=== PATIENT | female | born 1985 | race Caucasian/White ===

== ENCOUNTER 2024-12-07 11:26 | Outpatient (REF) | payer OTHER, SELFPAY ==
--- NOTE | ~2024-12-07 | US_ITS ---
EXAMINATION: MM DIAGNOSTIC DIGITAL BREAST TOMOSYNTHESIS, BILATERAL Limited Bilateral ultrasound. CLINICAL INFORMATION: Left breast palpable lump lower central breast. COMPARISON: Mammography: Baseline. TECHNIQUE: Digital breast mammography with tomosynthesis is performed in both the craniocaudal and mediolateral oblique views along with computer-aided detection (CAD). FINDINGS: The breasts are heterogeneously dense, which may obscure small masses (ACR BI-RADS breast composition Category c). Left: There are grouped coarse heterogeneous calcifications in a linear distribution measuring up to 10 cm anterior to posterior in the central inner breast extending anteriorly from the nipple towards the posterior breast. There is a focal asymmetry in the central inner breast anterior depth and a asymmetry in the medial breast middle depth on CC view. Ultrasound: Targeted color Doppler ultrasound scanning in the entire medial left breast from 6-12 o'clock demonstrates an solid irregular hypoechoic superficial mass at 8:00 4 cm from the nipple measuring 7 x 9 x 6 mm which correlates with the patient's palpable lump. Otherwise there is normal fibroglandular breast tissue scanning from 6-12 o'clock in the medial left breast. Right: There are two asymmetries medial breast middle and posterior depth on CC view. No suspicious calcifications or other abnormal findings. Ultrasound: Targeted color Doppler ultrasound scanning in the medial right breast demonstrates a simple cyst at 12:00 2 cm from the nipple measuring 13 x 17 x 6 mm. Targeted color Doppler ultrasound demonstrates a hypoechoic oval circumscribed solid mass at 3:00 5 cm from the nipple measuring 13 x 4 x 7 mm. This likely correlates with one of the medial breast asymmetries on mammography. Results are discussed with the patient at time of visit. US/US breast BI limited mamm only IMPRESSION: Left: 1. Solid irregular mass on ultrasound at 8:00 4 cm from the nipple correlating with the patient's palpable lump. Recommend histology with ultrasound-guided core needle biopsy at this time. The findings and recommendations were discussed with the patient the procedure will be scheduled. 2. Grouped coarse heterogeneous calcifications in a linear distribution spanning from the nipple posteriorly up to 10 cm. Recommend stereotactic core needle biopsy at this time for histologic confirmation. 3. Focal asymmetry retroareolar region central inner breast anterior depth and medial breast middle depth on CC view recommend clinical correlation with ultrasound-guided core needle biopsy above and management will be pending pathology of the above 2 biopsies. Breast MRI could be considered after pathology for further evaluation. Right: 1. 2 asymmetries in the medial right breast middle and posterior depth on CC view without definite sonographic correlates. Management will be pending biopsy of the 2 areas in the left breast to include six-month follow-up versus biopsy. 2. Hypoechoic oval circumscribed solid mass in the right breast at 3:00 5 cm from nipple which is a questionable correlate for one the asymmetries in the medial right breast middle and posterior depth on mammography. Management will be pending biopsy of the 2 left breast areas to include six-month follow-up versus biopsy. 3.. Simple cyst on ultrasound at 12:00 2 cm from the nipple. Benign. Breast MRI could be considered after pathology for further evaluation. ASSESSMENT: BI-RADS BI-RADS 4 - Suspicious finding RECOMMENDATION: Biopsy recommended Electronically signed by: Riri Valverde DO 12/07/2024 02:28 PM EDT
--- OUTSIDE RECORDS SUMMARY | 2024-12-07 13:11 | XMS_ITS | Encounter Summary ---
Author Organization [facility] Address [address] [place] [address] Phone Care Team Providers Care Home Care Giver Name Role Phone Pcp, Not Required Primary Care Provider Unavaila ble Encounter Details Date Type Department Care Team (Late st Contact Info) Description 11/21/2024 Ancillary Orders [facility] [place] [address] [address] Patti Morales NP [address] [facility] [place] [address] [email or web address] Unspecified lump in left breast, subareolar (Primary Dx) Social History Tobacco Use Types Packs/Day Years Used Date Smoking Tobacco: Never Smokeless Tobacco: Never Alcohol Use Standard Drinks/Week Comments Never 0 (1 standard drink = 0.6 oz pur e alcohol) Education Answer Date Recorded Are you interested in more education? Not on kymberly e 07/31/2022 Are you concerned about learning? Not on file 07/31/2022 No 07/31/2022 No 07/31/2022 Digital Access Answer Date Recorded No 09/01/2022 No 09/01/2022 Reliable internet access at home? Not on file 09/01/2022 Device with a working camera? Not on file Comments No Sex and Gender Information Value Date Recorded Sex Assigned at Not on file Legal Sex Female 12:04 PM EDT Gender Identity Not on file Sexual Orientation Not on file documented as of this encounter Plan of Treatment Upcoming Encounters Date Type Department Care Team (Late st Contact Info) Description 01/02/2025 10:40 AM EDT Procedure visit [facility] [address] [place] [address] [place] [address] Iris Sherman MD [address] [place] [address], [address] [place] [address] 02/06/2025 8:30 AM EST Office Visit [facility] [address] [facility] 1st [place] [address] Cassy Raya MD [address] [facility] [place] [address] [email or web address] Scheduled Orders Name Type Priority Associated Diagnoses Orde r Schedule Mammogram Diagnostic (Bilateral) Imaging Routine Unspecified lump in left breast, subareolar 1 Occurrences starting 11/21/2024 until 11/21/2026 documented as of this encounter Visit Diagnoses Diagnosis Unspecified lump in left breast, subareolar- Primary documented in this encounter Care Teams Home Care Giver Relationship Specialty Start Date End Date Pcp, Not Required [address] [place] [id number] PCP - General 04/28/18 documented as of this encounter Additional Source Comments The information contained in this document represents components of the legal health record. It is not the complete legal health record.[facility]
--- OUTSIDE RECORDS SUMMARY | 2024-12-07 13:11 | XMS_ITS | Encounter Summary ---
Author Organization [facility] Address [address] [facility] [address] [place] [address] Phone Care Team Providers Care Burn Center Nurse Name Role Phone Pcp, Not Required Primary Care Provider Unavaila ble Encounter Details Date Type Department Care Team (Late st Contact Info) Description 11/21/[address] [facility] [place] Breast Imaging, [address] [address] Patti Morales NP 31 [facility] [place] [address] [email or web address] Unspecified lump in left breast, subareolar [...] Procedure visit [facility] [address] [place] [address] [place] [address] Iris Sherman MD [address] [place] [address], [address] [place] [address] 02/06/2025 8:30 AM EST Office Visit [facility] [address] [facility] 1st [place] [address] Cassy Raya MD [address] [facility] [place] [address] [email or web address] Scheduled Orders Name Type Priority Associated Diagnoses Orde r Schedule US Breast (Left) Imaging Routine Unspecified lump in left breast, subareolar 1 Occurrences starting 11/21/2024 until 11/21/2026 documented as of this encounter Visit Diagnoses Diagnosis Unspecified lump in left breast, subareolar- Primary documented in this encounter Care Teams Burn Center Nurse Relationship Specialty Start Date End Date Pcp, Not Required [address] [place] [address] PCP - General 04/28/18 documented as of this encounter Additional Source Comments The information contained in this document represents components of the legal health record. It is not the complete legal health record.[facility]
--- OUTSIDE RECORDS SUMMARY | 2024-12-07 13:11 | XMS_ITS | Clinical Summary ---
Author Organization [facility] Address [address] [place] [phone] Phone Care Team Providers Care Corporate Statistical Financial Analyst Name Role Phone Pcp, Not Required Primary Care Provider Unavaila ble Allergies Active Allergy Reactions Criticality Noted Date Comments Cefaclor 08/14/2013 Penicillins 06/09/2018 Medications fluticasone propionate 110 mcg/actuation inhaler Inhale into the lungs 2 (two) times a day. Active dexmethylphenida te (FOCALIN XR) 10 MG 24 hr capsule Take 10 mg by mouth daily. 02/11/2024 Active Active Problems No known active problems Encounters Date Type Department Care Team Description 11/21/2024 Ancillary Orders [facility] [place] Breast Imaging[address] [address] Patti Morales NP Unspecified lump in left breast, subareolar (Primary Dx) 11/21/2024 Ancillary Orders [facility] [place] Breast Imaging, [address] [address] Patti Morales NP Unspecified lump in left breast, subareolar (Primary Dx) from Last 3 Months Family History Medical History Relation Comments Diabetes Mother Stroke Mother Uterine cancer Mother Relation Status Comments Brother Alive Father Alive Maternal Grandfather Maternal Grandmother Mother Paternal Grandfather Paternal Grandmother Social History Tobacco Use Types Packs/Day Years Used Date Smoking Tobacco: Never Smokeless Tobacco: Never Tobacco Cessation:Counseling Given: Not Answered Alcohol Use Standard Drinks/Week Comments Never 0 [...] on file Sexual Orientation Not on file Last Filed Vital Signs Vital Sign Reading Time Taken Comments Blood Pressure 123/84 08/14/2024 1:13 PM EDT Pulse 102 08/14/2024 1:13 PM EDT Temperature - - Respiratory Rate - - Oxygen Saturation 100% 08/14/2024 1:13 PM EDT Inhaled Oxygen Concentration - - Weight 57.2 kg (126 lb) 03/20/2024 1:05 PM EST Height 161.3 cm (5' 3.5 ) 03/20/2024 1:05 PM EST Body Mass Index 21.97 03/20/2024 1:05 PM EST Plan of Treatment Upcoming Encounters Date Type Department Care Team (Late st Contact Info) Description 01/02/2025 10:40 AM EDT Procedure visit [facility] [address] [place] [address] [place] [address] Iris Sherman MD [address] [place] [address], [address] [place] [address] 02/06/2025 8:30 AM EST Office Visit [facility] [address] [facility] 1st [place] [address] Cassy Raya MD [address] [facility] [place] [address] [email or web address] Health Maintenance Due Date Last Done Comments DEPRESSION SCREENING 1997 HEPATITIS C SCREENING 2003 HIV ONE-TIME SCREENING (18-65 YEARS) 2003 INFLUENZA VACCINE (#1) 2024 , 01/10/2023, 01/26/2022, Additional history exists PAP SMEAR 04/16/2026 04/16/2023 Adult Td,Tdap Booster 03/23/2033 03/23/2023, 012 COVID-19 VACCINE Completed 01/01/2024, 11/2022, 01/26/2022, Additional history exists SMOKING STATUS SCREENING (Once After 26 Yrs) Completed 08/14/2024 HEPATITIS A VACCINES Aged Out No long er eligible based on patient's age to complete this topic HIB VACCINES Aged Out No longer eligi ble based on patient's age to complete this topic MENINGOCOCCAL VACCINES (ACWY) Aged Out No longer eligible based on patient's age to complete this topic MENINGOCOCCAL VACCINES (B) Aged Out N o longer eligible based on patient's age to complete this topic PNEUMOCOCCAL VACCINES (0-49 years) Aged Out No longer eligible based on patient's age to complete this topic Medical Devices Not on file Procedures Procedure Name Priority Date/Time Associated Diagnosis Comments PAP TEST Routine 04/16/2023 12:00 AM EST from Last 3 Months or Most Recently Relevant to Health Maintenance Results * Pap Test (04/16/2023 12:00 AM EST) 04/16/2023 04/19/2023 10: 07 AM EST Narrative SEE NARRATIVE - 04/21/2023 2:49 PM EST [address] [address] Coal Dumping Equipment Operator: Maranda Alcaraz MD WEATHER TEACHER Cytology Report FINAL DIAGNOSIS A. PAP SMEAR (SUREPATH) CE: SPECIMEN ADEQUACY: Satisfactory for evaluation; transformation zone present. INTERPRETATION: NEGATIVE FOR INTRAEPITHELIAL LESION OR MALIGNANCY. Electronically Signed Out By: JORGE Canela(ASCP) The Pap test is a screening test primarily for squamous cancers and precursors and has associated false-negative and false-positive results. New technologies such as liquid-based preparations may decrease but will not eliminate all false-negative results. Regular sampling and follow-up of unexplained clinical signs and symptoms are recommended to minimize false negative results. PROCEDURES/ADDENDA HPV Testing (Requested) Ordered Date: 04/19/2023 A. PAP SMEAR (SUREPATH) CE: Human Papilloma Virus Test NEGATIVE for high-risk Human Papilloma Virus types 16, 18, 45 and the Other high risk probe set (Includes 31, 33, 35, 39, 51, 52, 56, 58, 59, 66, 68) Note: Testing performed by [employer] HR-HPV analysis. Clinical correlation is advised. This HPV test was performed at [facility], [address] [place] [address]. This test has been FDA approved for SurePath cervical cytology specimens. The accuracy and precision of this test for all other specimen sources has been verified in the Cytopathology Laboratory of the [facility] and has not been cleared or approved by the U.S. Food and Drug Administration. Clinical correlation is advised. CLINICAL HISTORY Date of Last Menstrual Period: 04-14-2023 Other Clinical Conditions: Screening Pap SPECIMEN SOURCE A: PAP SMEAR (SUREPATH) CE Patient Name: SENDY BELTRAN : 1985 (Age: 38) Sex: F Institution: [facility] Location: [facility] Date of Collection: 04/16/2023 Date of Reported: 04/21/2023 14:49 Results to: Leana Chandler MD us Leana Chandler MD CYTOLOGY ORDERABLES Final Res ult SEE NARRATIVE from Last 3 Months or Most Recently Relevant to Health Maintenance Insurance [employer] [facility] COMM[facility] CHO[facility] COMMUNITY CHOICE [facility] CHOICE Care Teams Corporate Statistical Financial Analyst Relationship Specialty Start Date End Date Pcp, Not Required [address] [place] [address] PCP - General 04/28/18 Additional Source Comments The information contained in this document represents components of the legal health record. It is not the complete legal health record.[facility]
== END 2024-12-07 11:27 | disposition home or self-care (01) ==
LOC: HO.MAMMO 11:26
PROVIDERS: PCP Nurse Practitioner Adult Health; Visit Provider Nurse Practitioner Adult Health
DX: N64.89 Other specified disorders of breast (principal); N63.42 Unspecified lump in left breast, subareolar
CPT/HCPCS: 76642; 77062; 77066

== ENCOUNTER → 2024-12-07 11:30 | Outpatient (BNV) | payer OTHER, SELFPAY | PROVIDERS: PCP Nurse Practitioner Adult Health; Visit Provider Internal Medicine | DX: N63.22 Unspecified lump in the left breast, upper inner quadrant (principal); N63.13 Unspecified lump in the right breast, lower outer quadrant | CPT/HCPCS: 76642; 77062; 77066 ==

== ENCOUNTER → 2024-12-21 09:00 | Outpatient (BNV) | payer OTHER, SELFPAY | PROVIDERS: PCP Nurse Practitioner Adult Health; Visit Provider Internal Medicine | DX: R92.1 Mammographic calcification found on diagnostic imaging of breast (principal); N63.25 Unspecified lump in the left breast, overlapping quadrants | CPT/HCPCS: 19081; 19083; 77065 ==

== ENCOUNTER 2024-12-21 09:05 | Outpatient (REF) | payer OTHER, SELFPAY ==
--- NOTE | ~2024-12-21 | MM_ITS ---
EXAMINATION: STEREOTACTICALLY-GUIDED LEFT BREAST BIOPSY CLINICAL INFORMATION: Linear pleomorphic calcifications in the central inner left breast here for stereotactic core needle biopsy. Patient had a solid irregular mass in the left breast correlating with the palpable lump for which ultrasound-guided core needle biopsy was performed same day. COMPARISON: Priors on PACS. INFORMED CONSENT: After the details of the procedure, as well as the risks (including, but not limited to, bleeding, hematoma formation, and infection), benefits and alternatives (including doing nothing, short-interval follow up, and surgery) to the procedure were explained to the patient in detail and all of her questions were answered, informed written consent was obtained. TECHNIQUE/FINDINGS: A timeout was performed. The lesion intended for biopsy was identified stereotactically and targeted. The skin of the left breast was then cleansed with sterile solution. Using stereotactic guidance, aseptic technique, and 1% lidocaine with and without epinephrine for local anesthesia, a total of 12 cores were obtained through the targeted area with a 9-gauge vacuum-assisted Eviva core biopsy device from a medial approach. Specimen radiography reveals the targeted calcifications in the sampled tissue. At the completion of tissue sampling, a single top hat-shaped metallic clip was deposited at the biopsy site. Adequate sampling was achieved. The postprocedure 2-view direct digital mammogram reveals satisfactory positioning of the biopsy clips. The patient tolerated the procedure well and, after assuring adequate hemostasis, was discharged in good condition after reviewing postbiopsy breast care instructions. Final pathology results are pending. MM/MM stereotactic biopsy LT IMPRESSION: 1. Uncomplicated stereotactically-guided core biopsy of the left. The 2-view direct digital postprocedure mammogram reveals satisfactory positioning of the biopsy clips. 2. Final pathology results are pending. A separate report with final recommendations will be issued once these results are made available. Electronically signed by: Riri Valverde DO 12/21/2024 02:34 PM EDT
--- NOTE | ~2024-12-21 | US_ITS ---
PROCEDURE: ULTRASOUND-GUIDED LEFT BREAST BIOPSY CLINICAL INFORMATION: Palpable left breast lump correlating with a solid irregular mass on ultrasound at 8:00 4 cm from the nipple here for ultrasound-guided core needle biopsy and stereotactic core needle biopsy of calcifications in the left breast. COMPARISON: Priors on PACS December 07, 2024. TECHNIQUE: The details of the procedure, as well as the risks, benefits, and alternatives to the procedure were explained to the patient in detail and all of her questions were answered, after which, written informed consent was obtained. PROCEDURE: Prior to the procedure, sonography revealed solid irregular mass at 8:00 4 cm from the nipple in the left breast correlating with the patient's palpable lump. A time-out was performed, the lesion intended for biopsy was targeted and the skin of the left breast was then prepped and draped in the usual sterile fashion. Using sonographic guidance, sterile technique, and 1% lidocaine without epinephrine for local anesthesia, a total of 6 cores were obtained through the targeted area with a 14-gauge biopsy device. At the completion of tissue sampling, a single butterfly metallic clip was deposited at the biopsy site. An appropriate sample was obtained. The postprocedure 2-view direct digital mammogram reveals satisfactory positioning of the biopsy clips. The patient tolerated the procedure well and, after assuring adequate hemostasis, was discharged in good condition after reviewing postbiopsy breast care instructions. Final pathology results are pending. US/US breast ndl core biopsy LT IMPRESSION: 1. Uncomplicated sonographically-guided core biopsy of the left breast. The 2-view direct digital postprocedure mammogram reveals satisfactory positioning of the biopsy clips. Patient also had a left breast stereotactic biopsy same day dictated separately. 2. Final pathology results are pending. A separate report with final recommendations will be issued once these results are made available. Electronically signed by: Riri Valverde DO 12/21/2024 02:34 PM EDT
[2024-12-21] MEDS: Lidocaine HCl 1 % 20 ML VIAL 18 ML SUBCUT (10:04)
--- OUTSIDE RECORDS SUMMARY | 2024-12-21 10:32 | XMS_ITS | Clinical Summary ---
Author Organization [facility] Address [address] [place] [address] Phone Care Team Providers Care Store Grocery Merchandiser Name Role Phone Pcp, Not Required Primary [...] Encounters Date Type Department Care Team Description 12/15/2024 Transcribe Orders [facility], [facility]- [address] [address] Patti Morales NP Other abnormal and inconclusive findings on diagnostic imaging of breast (Primary Dx) 12/14/2024 Transcribe Orders Virtual Department [address] [place] [address] Patti Morales NP Other abnormal and inconclusive findings on diagnostic imaging of breast (Primary Dx) 12/12/2024 Ancillary Orders [facility],Outside Imaging [address] [place] [address] Natalee, MD Natalee 12/12/2024 Ancillary Orders [facility],Outside Imaging [address] [place] [address] Unknown, MD Natalee 12/07/2024 12:05 AM EDT - 12/07/2024 11:59 PM EDT Hospital Encounter [facility],Outside Imaging [address] [place] [address] Unknown, Unknown, MD Discharge Disposition: Home or Self Care 12/07/2024 - 12/07/2024 12:04 AM EDT Hospital Encounter [facility],Outside Imaging [address] [place] [address] Unknown, Unknown, MD Discharge Disposition: Home or Self Care 11/21/2024 Ancillary Orders [facility] [place] Breast [place], [place] [address] [place] [address] Patti Morales NP Unspecified lump in left breast, subareolar (Primary Dx) 11/21/2024 Ancillary Orders [facility] [place] Breast [place], [address] [place] [address] Patti Morales NP Unspecified lump in left [...] Procedure visit [facility] [address] [place] [address] [place] [address] Iris Sherman MD [address] [place] [address], [address] [place] [address] 02/06/2025 8:30 AM EST Office Visit [facility] [address] [place] [address] Cassy Raya MD [address] [place] [address] [email or web address] Health Maintenance Due Date Last Done [...] Procedure Name Priority Date/Time Associated Diagnosis Comments BI MAMMOGRAM OUTSIDE (NO INTERPRETATION) Routine 12/07/2024 12:05 AM EDT BI US BREAST OUTSIDE (NO INTERPRETATION) Routine 12/07/2024 12:00 AM EDT PAP TEST Routine 04/16/2023 12:00 AM EST from Last 3 Months or Most Recently Relevant to Health Maintenance Results * Mammogram Outside (No Interpretation) (12/07/2024 12:05 AM EDT) Narrative Robyn Burnett - 12/12/2024 1:39 PM EDT This study is for PACS storage only and not for interpretation. Procedure Note Robyn Burnett - 12/12/2024 This study is for PACS storage only and not for interpretation. us Unknown Unknown MD IMG OUTSIDE IMAGING W/OUT INT ERPRETATION Final Result * US Breast Outside (No Interpretation) (12/07/2024 12:00 AM EDT) Narrative SYSTEMGENERATED, DOCUMENTATION - 12/12/2024 1:39 PM EDT This study is for PACS storage only and not for interpretation. us Unknown Unknown MD IMG OUTSIDE IMAGING W/OUT INT ERPRETATION Final Result * Pap Test (04/16/2023 12:00 AM EST) 04/16/2023 04/19/2023 10: 07 AM EST Narrative SEE NARRATIVE - 04/21/2023 2:49 PM EST [address] [address] Sole Trimmer: Maranda Alcaraz MD ENVELOPE CUTTER Cytology Report FINAL DIAGNOSIS A. PAP SMEAR [...] 59, 66, 68) Note: Testing performed by [employer] HR-HPV analysis. Clinical correlation is advised. This HPV test was performed at [facility], [address] [place] [address]. This test has been FDA approved for SurePath cervical cytology specimens. The accuracy and precision of this test for all other specimen sources has been verified in the Cytopathology Laboratory of the [facility] and has not been cleared or approved by the U.S. Food and Drug Administration. Clinical correlation is advised. CLINICAL HISTORY Date of Last Menstrual Period: 04-14-2023 Other Clinical Conditions: Screening Pap SPECIMEN SOURCE A: PAP SMEAR (SUREPATH) CE Patient Name: ARPAN BELTRAN : 1985 (Age: 38) Sex: F Institution: [facility] Location: [facility] Date of Collection: 04/16/2023 Date of Reported: 04/21/2023 14:49 Results to: Leana Chandler MD us Leana Chandler MD CYTOLOGY ORDERABLES Final Res ult SEE NARRATIVE from Last 3 Months or Most Recently Relevant to Health Maintenance Insurance [place] [address] COMMUNITY CHOICE [facility] CHOICE [facility] CHOICE [facility] CHO[facility] CHOICE [facility] CHOICE Care Teams Store Grocery Merchandiser Relationship Specialty Start Date End Date Pcp, Not Required [address] [place] [address] PCP - General 04/28/18 Additional Source Comments The information contained in this document represents components of the legal health record. It is not the complete legal health record.[facility]
--- OUTSIDE RECORDS SUMMARY | 2024-12-21 10:32 | XMS_ITS | Encounter Summary ---
Author Organization [facility] Address [address] [facility] [address] [place] [address] Phone Care Team Providers Care Office Machine Punch Operator Name Role Phone Pcp, Not Required Primary Care Provider Unavaila ble Encounter Details Date Type Department Care Team (Late st Contact Info) Description 11/21/2024 Ancillary Orders [facility] [place] Breast Imaging, [address] [address] Patti Morales NP 31 [facility] [place] [address] [email or web address] Unspecified lump in left breast, subareolar [...] Procedure visit [facility] [address] [place] [address] [place] [address] Iris Sherman MD [address] [place] [address], [address] [place] [address] 02/06/2025 8:30 AM EST Office Visit [facility] [address] [facility] 1st [place] [address] Cassy Raya MD [address] [facility] [place] [address] [email or web address] Scheduled Orders Name Type Priority Associated Diagnoses Orde r Schedule Mammogram Diagnostic (Bilateral) Imaging Routine Unspecified lump in left breast, subareolar 1 Occurrences starting 11/21/2024 until 11/21/2026 documented as of this encounter Visit Diagnoses Diagnosis Unspecified lump in left breast, subareolar- Primary documented in this encounter Care Teams Office Machine Punch Operator Relationship Specialty Start Date End Date Pcp, Not Required [address] [place] [address] PCP - General 04/28/18 documented as of this encounter Additional Source Comments The information contained in this document represents components of the legal health record. It is not the complete legal health record.[facility]
--- OUTSIDE RECORDS SUMMARY | 2024-12-21 10:32 | XMS_ITS | Encounter Summary ---
Author Organization [facility] Address [address] [facility] [address] [place] [address] Phone Care Team Providers Care Clarification Operator Name Role Phone Pcp, Not Required Primary Care Provider Unavaila ble Encounter Details Date Type Department Care Team (Late st Contact Info) Description 11/21/2024 Ancillary Orders [facility] [place] Breast Imaging, [address] [address] Patti Morales NP 31 [facility] [place] [address] [email or web address] Unspecified lump in left breast, subareolar [...] Procedure visit [facility] [address] [place] [address] [place] [address] Iris Sherman MD [address] [place] [address], [address] [place] [address] 02/06/2025 8:30 AM EST Office Visit [facility] [address] [facility] 1st [place] [address] Cassy Raya MD [address] [facility] [place] [address] [email or web address] Scheduled Orders Name Type Priority Associated Diagnoses Orde r Schedule US Breast (Left) Imaging Routine Unspecified lump in left breast, subareolar 1 Occurrences starting 11/21/2024 until 11/21/2026 documented as of this encounter Visit Diagnoses Diagnosis Unspecified lump in left breast, subareolar- Primary documented in this encounter Care Teams Clarification Operator Relationship Specialty Start Date End Date Pcp, Not Required [address] [place] [address] PCP - General 04/28/18 documented as of this encounter Additional Source Comments The information contained in this document represents components of the legal health record. It is not the complete legal health record.[facility]
[2024-12-21] MEDS: Lidocaine HCl 1 % 20 ML VIAL 3 ML SUBCUT (11:12)
[2024-12-21] MEDS: Lidocaine HCl 1%/Epi 1:100,000 10 ML VIAL 17 ML SUBCUT (11:14)
== END 2024-12-21 09:06 | disposition home or self-care (01) ==
LOC: HO.MAMMO 09:05
PROVIDERS: PCP Nurse Practitioner Adult Health; Visit Provider Nurse Practitioner Adult Health
DX: N63.42 Unspecified lump in left breast, subareolar (principal); R92.1 Mammographic calcification found on diagnostic imaging of breast; D05.12 Intraductal carcinoma in situ of left breast
CPT/HCPCS: 19081; 19083; 88305; 88342; A4648; J2003; J2004

== ENCOUNTER 2024-12-27 15:15 | Outpatient (REF) | payer OTHER, SELFPAY ==
--- NOTE | ~2024-12-27 | MR_ITS ---
EXAMINATION: MR BREAST WITHOUT AND WITH CONTRAST, BILATERAL CLINICAL INFORMATION: Biopsy proven left breast cancer at two sites Invasive Ductal Carcinoma and Ductal Carcinoma in Situ. COMPARISON: Comparison is made with relevant prior imaging. TECHNIQUE: MR imaging of the breast was performed using T1, T2 and fat saturated techniques. Dynamic multiphase imaging was also performed after the administration of intravenous gadolinium contrast agent. Computer generated 3D reconstruction and enhancement kinetic analysis was ulitized by the radiologist in the interpretation of this examination. FINDINGS: Breast composition: Heterogeneous fibroglandular breast tissue Background parenchymal enhancement: Marked LEFT BREAST: Irregular enhancing masses in the medial breast anterior depth series [id number] images 69 through 39 This correlates with recent biopsy-proven invasive ductal carcinoma in 2 sites spanning anterior to posterior in the central inner breast which is better evaluated on prior mammogram with the extent of calcifications and irregular masses. On mammography the area of irregular masses and suspicious calcifications associated with to biopsy clips with pathology of invasive ductal carcinoma spin 84 mm anterior to posterior by 44 mm superior to inferior by 68 mm transverse. The irregular nonmass enhancement starts just at the posterior aspect of the nipple. 6 x 5 mm oval enhancing mass series [id number] image 46/126 upper central breast 5 cm from the nipple stand out above background. No other suspicious enhancing masses or areas of nonmass enhancement. Question prominent left axillary lymph nodes. Recommend ultrasound evaluation at this time for confirmation. RIGHT BREAST: 8 by 5 mm oval enhancing mass retroareolar region medial breast series [id number] image 69/126 5 to 6 cm from the nipple this area was seen on prior mammogram medial breast CC view and will be evaluated on additional diagnostic imaging and biopsy via ultrasound or mammogram schedule December 27, 2024. Additional 9 by 5 mm oval enhancing mass series [id number] image 75/126 medial breast retroareolar to lower breast 5 cm from the nipple was also seen on prior mammogram and will be evaluated and attempted biopsy via ultrasound or mammogram December 27, 2024. 4 x 4 millimeter oval enhancing mass series 53763 image 70/126 in the retroareolar region demonstrates enhancement above background and mixed kinetics with washout. Recommend ultrasound evaluation for a correlate if no correlate is seen breast MRI biopsy is recommended. No axillary or internal mammary adenopathy. Limited views of the chest and abdomen are unremarkable. MR/MR breast BI wo/w con IMPRESSION: Left: 1. Biopsy-proven invasive ductal carcinoma in 2 sites correlating with irregular mass and nonmass enhancement scanning in the central inner left breast anterior to posterior depth is better evaluated on prior mammogram measures up to 84 mm anterior to posterior. 2. Question prominent left axillary lymph nodes. Recommend ultrasound of the left axilla at this time for confirmation. 3. 6 mm oval enhancing mass 12:00 5 cm from the nipple stand out above background enhancement recommend ultrasound evaluation at this time. If no ultrasound correlate is seen and if patient is considering conservation therapy MRI guided core needle biopsy is recommended. Right: 1. Ultrasound evaluation in the retroareolar region of the right breast for 4 mm oval enhancing mass correlate is no correlate is found MRI guided core needle biopsy is recommended. 2. Recommend ultrasound evaluation of 2 oval enhancing masses in the medial breast retroareolar region, biopsy of these masses is recommended via ultrasound or stereotactic core needle biopsy. ASSESSMENT: LEFT BREAST: BI-RADS 4-Suspicious RIGHT BREAST: BI-RADS 4-Suspicious RECOMMENDATIONS: Recommend left axillary ultrasound at this time for question prominent lymph nodes. Limited left breast ultrasound upper central breast 10-2 o'clock for evaluation of 6 mm enhancing mass 5 cm behind the nipple. If no correlate is seen and if patient does not having a mastectomy and considering conservation therapy MRI guided core needle biopsy is recommended. Recommend right breast ultrasound and biopsies as described above. Electronically signed by: Riri Valverde DO 12/27/2024 09:12 PM EDT
--- OUTSIDE RECORDS SUMMARY | 2024-12-27 17:45 | XMS_ITS | Encounter Summary ---
Author Organization [facility] Address [address] [facility] [address] [place] [address] Phone Care Team Providers Care Chiseler Head Name Role Phone Pcp, Not Required Primary Care Provider Unavaila ble Encounter Details Date Type Department Care Team (Late st Contact Info) Description 11/21/2024 Ancillary Orders [facility] [place] [facility], [address] [address] Patti Morales NP 31 [facility] [place] [address] [email or web address] Unspecified lump in left breast, [...] Care Team (Late st Contact Info) Description 01/01/2025 12:00 PM EDT Office Visit [facility] Care [address] [place] [address] Bertha Madison MD 15 [facility], 2nd [place] [address] 01/02/2025 10:40 AM EDT Procedure visit [facility] [address] [place] [address] [place] [address] Iris Sherman MD 22 [facility], [address] [place] [address] 02/06/2025 8:30 AM EST Office Visit [facility] [address] [address] Cassy Raya MD 221 [facility] [place] [address] [email or web address] Scheduled Orders Name Type Priority Associated Diagnoses Orde r Schedule US Breast (Left) Imaging Routine Unspecified lump in left breast, subareolar 1 Occurrences starting 11/21/2024 until 11/21/2026 documented as of this encounter Visit Diagnoses Diagnosis Unspecified lump in left breast, subareolar- Primary documented in this encounter Care Teams Chiseler Head Relationship Specialty Start Date End Date Pcp, Not Required [address] [place] [address] PCP - General 04/28/18 documented as of this encounter Additional Source Comments The information contained in this document represents components of the legal health record. It is not the complete legal health record.[facility]
--- OUTSIDE RECORDS SUMMARY | 2024-12-27 17:45 | XMS_ITS | Clinical Summary ---
Author Organization [facility] Address [address] [place] [address] Phone Care Team Providers Care Window/Distribution Clerk Name Role Phone Pcp, Not Required Primary [...] Department Care Team Description 12/15/2024 Transcribe Orders [facility], [facility]- [address] [address] Patti Morales NP Other abnormal and inconclusive findings on diagnostic imaging of breast (Primary Dx) 12/14/2024 Transcribe Orders Virtual Department [address] [place] [address] Patti Morales NP Other abnormal and inconclusive findings on diagnostic imaging of breast (Primary Dx) 12/12/2024 Ancillary Orders [facility],Outside Imaging [address] [place] [address] Natalee, MD Natalee 12/12/2024 Ancillary Orders [facility],Outside Imaging [address] [place] [address] Unknown, MD Natalee 12/07/2024 12:05 AM EDT - 12/07/2024 11:59 PM EDT Hospital Encounter [facility],Outside Imaging [address] [place] [address] Unknown, Unknown, MD Discharge Disposition: Home or Self Care 12/07/2024 - 12/07/2024 12:04 AM EDT Hospital Encounter [facility],Outside Imaging [address] [place] [address] Unknown, Unknown, MD Discharge Disposition: Home or Self Care 11/21/2024 Ancillary Orders [facility] [place], [place] [address] [place] [address] Patti Morales NP Unspecified lump in left breast, subareolar (Primary Dx) 11/21/2024 Ancillary Orders [facility], [place] [address] [place] [address] Patti Morales NP Unspecified lump in left [...] 12:00 PM EDT Office Visit [facility] General Surgical Care [address] [place] [address] Bertha Madison MD 15 [facility], 2nd [place] [address] 01/02/2025 10:40 AM EDT Procedure visit [facility] [address] [place] [address] [place] [address] Iris Sherman MD 22 [facility], [address] [place] [address] 02/06/2025 8:30 AM EST Office Visit [facility] [address] [address] Cassy Raya MD 221 [facility] [place] [address] [email or web address] Health Maintenance Due Date Last Done [...] SEE NARRATIVE - 04/21/2023 2:49 PM EST [address] [address] Probate Judge: Maranda Alcaraz MD [employer] Cytology Report FINAL DIAGNOSIS A. PAP SMEAR [...] 59, 66, 68) Note: Testing performed by [email or web address] Onclarity HR-HPV analysis. Clinical correlation is advised. This HPV test was performed at [facility], [address] [place] [address]. This test has been FDA approved for SurePath cervical cytology specimens. The accuracy and precision of this test for all other specimen sources has been verified in the Cytopathology Laboratory of the [facility] and has not been cleared or approved by the U.S. Food and Drug Administration. Clinical correlation is advised. CLINICAL HISTORY Date of Last Menstrual Period: 04-14-2023 Other Clinical Conditions: Screening Pap SPECIMEN SOURCE A: PAP SMEAR (SUREPATH) CE Patient Name: ARPAN BELTRAN : 1985 (Age: 38) Sex: F Institution: [facility] Location: [facility] Date of Collection: 04/16/2023 Date of Reported: 04/21/2023 14:49 Results to: Leana Chandler MD us Leana Chandler MD CYTOLOGY ORDERABLES Final Res ult SEE NARRATIVE from Last 3 Months or Most Recently Relevant to Health Maintenance Insurance [facility] COMMUNITY CHOICE [facility] CHOICE [facility] COMMUNITY CHOICE [facility]UNITY [place] [address] [place] [address] COMMUNITY CHOICE [facility] CHOICE [facility] COMMUNITY CHOICE Care Teams Window/Distribution Clerk Relationship Specialty Start Date End Date Pcp, Not Required [address] [place] [address] PCP - General 04/28/18 Additional Source Comments The information contained in this document represents components of the legal health record. It is not the complete legal health record.[facility]
--- OUTSIDE RECORDS SUMMARY | 2024-12-27 17:45 | XMS_ITS | Encounter Summary ---
Author Organization [facility] Address [address] [facility] [address] [place] [address] Phone Care Team Providers Care Ruffling Machine Operator Name Role Phone Pcp, Not Required Primary Care Provider Unavaila ble Encounter Details Date Type Department Care Team (Late st Contact Info) Description 11/21/2024 Ancillary Orders [facility] [place] Breast Imaging, [address] [address] Patti Morales NP 31 [facility] [place] [address] [email or web address] Unspecified lump in left breast, subareolar (Primary [...] [facility] [address] [place] [address] Bertha Madison MD 15 [facility], 2nd [place] [address] 01/02/2025 10:40 AM EDT Procedure visit [facility] [address] [place] [address] [place] [address] Iris Sherman MD 22 [facility], [address] [place] [address] 02/06/2025 8:30 AM EST Office Visit [facility] [address] [address] Cassy Raya MD 221 [facility] [place] [address] [email or web address] Scheduled Orders Name Type Priority Associated Diagnoses Orde r Schedule Mammogram Diagnostic (Bilateral) Imaging Routine Unspecified lump in left breast, subareolar 1 Occurrences starting 11/21/2024 until 11/21/2026 documented as of this encounter Visit Diagnoses Diagnosis Unspecified lump in left breast, subareolar- Primary documented in this encounter Care Teams Ruffling Machine Operator Relationship Specialty Start Date End Date Pcp, Not Required [address] [place] [address] PCP - General 04/28/18 documented as of this encounter Additional Source Comments The information contained in this document represents components of the legal health record. It is not the complete legal health record.[facility]
== END 2024-12-27 15:16 | disposition home or self-care (01) ==
LOC: HO.MRI 15:15
PROVIDERS: PCP Nurse Practitioner Adult Health; Visit Provider Nurse Practitioner Adult Health
DX: C50.912 Malignant neoplasm of unspecified site of left female breast (principal)
CPT/HCPCS: 77049; A9585

== ENCOUNTER → 2024-12-27 15:33 | Outpatient (BNV) | payer OTHER, SELFPAY | PROVIDERS: PCP Nurse Practitioner Adult Health; Visit Provider Internal Medicine | DX: C50.112 Malignant neoplasm of central portion of left female breast (principal) | CPT/HCPCS: 77049 ==

== ENCOUNTER → 2024-12-28 08:00 | Outpatient (BNV) | payer OTHER, SELFPAY | PROVIDERS: PCP Nurse Practitioner Adult Health; Visit Provider Radiology Body Imaging | DX: N63.15 Unspecified lump in the right breast, overlapping quadrants (principal) | CPT/HCPCS: 19083; 19084; 76642; 77065 ==

== ENCOUNTER 2024-12-28 08:04 | Outpatient (REF) | payer OTHER, SELFPAY ==
--- NOTE | ~2024-12-28 | US_ITS ---
EXAMINATIONS/PROCEDURES: 1. LIMITED ULTRASOUND OF THE RIGHT BREAST 2. LIMITED ULTRASOUND OF THE LEFT BREAST 3. ULTRASOUND GUIDED CORE BIOPSY BREAST, RIGHT (2 SITES) 4. POST PROCEDURE DIGITAL MAMMOGRAM, RIGHT CLINICAL INFORMATION: -December 21, 2024: Ultrasound-guided needle core biopsy of left breast mass at 8 o'clock position at 4 cm from the nipple. Pathology results showed invasive ductal carcinoma and ductal carcinoma in situ. -December 21, 2024: Stereotactic needle core biopsy of left breast calcifications that were extending along the medial breast, from the nipple to posterior breast. Pathology results showed invasive ductal carcinoma and ductal carcinoma in situ. -Breast MRI on December 27, 2024: Delineation of the biopsy proven malignancy of the left breast. Additional bilateral findings as follows: --Right breast: 0.8 x 0.5 cm enhancing mass in the retroareolar medial upper breast at 5-6 cm from the nipple ([id number]: 69/126). --Right breast: 0.9 x 0.5 cm enhancing mass in the retroareolar medial lower breast at 5 cm from the nipple ([id number]:75/126). --Right breast: 0.4 x 0.4 cm enhancing mass in the retroareolar upper inner quadrant at 1.7 cm from the nipple, immediately anterior to the known cyst located at 12 o'clock position at 2 cm from the nipple. --Left breast: 0.6 x 0.5 cm enhancing mass (04273:46/126) in the upper central slightly outer breast at 5 cm from the nipple. --Left axilla: Prominent lymph nodes. MR findings and plan for next step were discussed between Dr. Valverde and I, following interpretation of yesterday's MR study. COMPARISON: Diagnostic mammogram/ultrasound workup on December 07, 2024. Ultrasound-guided needle core biopsy on December 21, 2024. Stereotactic needle core biopsy on December 21, 2024. Breast MRI of December 27, 2024. 1) LIMITED ULTRASOUND OF THE RIGHT BREAST: FINDINGS: Limited ultrasound of the right breast was performed prior to the scheduled procedure. The survey demonstrates the following: - Solid mass at 3:00 (lower) 5 cm from the nipple, measuring 1.2 x 0.6 x 0.4 cm. This correlates with the MR finding described measuring 0.9 x 0.5 cm. - Solid mass at 3:00 (upper) 4 cm from the nipple, measuring 1.0 x 0.4 x 0.8 cm. This correlates with the MR finding described measuring 0.8 x 0.5 cm. - Survey was also performed in the immediate vicinity of the known cyst located at 12 o'clock position 2 cm from the nipple. No suspicious lesions identified. However, there was a prominent vessel running immediately anterior to the cyst that could potentially correlate with the MR finding described as measuring 0.4 x 0.4 cm. 2) LIMITED ULTRASOUND OF THE LEFT BREAST: FINDINGS: Limited ultrasound of the left breast was performed at prior to the scheduled procedure. The survey demonstrates the following: -Targeted ultrasound of the left axillary region shows a few prominent axillary lymph nodes measuring up to 0.3 cm in cortical thickness. No single lymph node with particularly suspicious features that was different from the others could be identified. -No definite MR correlate for the 0.6 x 0.5 cm MR finding seen in the upper central slightly outer breast at 5 cm from the nipple. 3) Following limited ultrasound examinations, it was decided to proceed with an ultrasound-guided needle core biopsy of the 2 right breast solid masses identified at 3 o'clock position 4 cm from the nipple. Proper informed consent is obtained from the patient after discussion of the procedure, potential risks and complications, and alternatives. Patient was given an opportunity for questions. The patient appeared to understand. The patient consented to the procedure and signed the consent form. 3A) ULTRASOUND-GUIDED NEEDLE CORE BIOPSY OF THE RIGHT BREAST 3:00 LOWER AT 5 CM FROM THE NIPPLE. GUIDANCE: Ultrasound-guided; aseptic technique. LESION: Solid mass at 3:00 lower at 5 cm from the nipple. APPROACH: Medial. ANESTHESIA: 7 cc of lidocaine 1% buffered with Sodium Bicarbonate 8.4 % (9cc: 1cc). NEEDLE: 14-gauge Bard Marquee biopsy device with co-axial introducer. CORES: 3. CLIP: Ultraclip; shape: Heart. 3B) ULTRASOUND-GUIDED NEEDLE CORE BIOPSY OF THE RIGHT BREAST 3:00 UPPER AT 4 CM FROM THE NIPPLE. GUIDANCE: Ultrasound-guided; aseptic technique. LESION: Solid mass at 3:00 upper at 4 cm from the nipple. APPROACH: Medial. ANESTHESIA: 5 cc of lidocaine 1%. NEEDLE: 16-gauge Bard Marquee biopsy device with co-axial introducer. CORES: 3. CLIP: Ultraclip; shape: ribbon. 4) POST PROCEDURE UNILATERAL DIGITAL RIGHT MAMMOGRAM WITH TOMOSYNTHESIS: The post biopsy mammogram with tomosynthesis is performed in separate room using separate digital mammography equipment from the biopsy procedure. ML 90 degrees, MLO and CC views are obtained. The ribbon and heart shape clip markers are in satisfactory position. No gross hematoma. The patient tolerated the procedure well. No immediate complications. Home instructions reviewed with the patient. Final pathology results are pending. US/US breast ndl core biopsy RT IMPRESSION: 1. Status post ultrasound-guided core biopsy of the right breast solid mass at 3:00 lower at 5 cm from the nipple breast, correlating with the mammographic and MR findings. Heart shape clip. 2. Status post ultrasound-guided core biopsy of the right breast solid mass at 3:00 upper at 4 cm from the nipple breast, correlating with the mammographic and MR findings. Ribbon shape clip. 3. Pathology pending. An addendum report will be issued. 4. No suspicious sonographic correlate for the 0.4 x 0.4 cm right breast retroareolar MR finding adjacent to the cyst. However, prominent local vessel could represent a potential correlate. Further management will depend on the pathology results of the today's biopsied masses. 5. No definite sonographic correlate for the 0.6 x 0.5 cm MR finding in the upper breast slightly outer breast at 5 cm from the nipple. Further management will depend on the pathology results of the today's biopsied masses. 6. Prominent left axillary lymph nodes with borderline cortical thickening. No sample was thought to be needed at this point. ASSESSMENT: BI-RADS: Post Procedure Mammograms for Marker Placement FOLLOW-UP: Awaiting Pathology Results Electronically signed by: Dev Whipple MD 12/28/2024 04:48 PM EDT
--- NOTE | ~2024-12-28 | US_ITS ---
EXAMINATIONS/PROCEDURES: 1. LIMITED ULTRASOUND OF THE RIGHT BREAST 2. LIMITED ULTRASOUND OF THE LEFT BREAST 3. ULTRASOUND GUIDED CORE BIOPSY BREAST, RIGHT (2 SITES) 4. POST PROCEDURE DIGITAL MAMMOGRAM, RIGHT CLINICAL INFORMATION: -December 21, 2024: Ultrasound-guided needle core biopsy of left breast mass at 8 o'clock position at 4 cm from the nipple. Pathology results showed invasive ductal carcinoma and ductal carcinoma in situ. -December 21, 2024: Stereotactic needle core biopsy of left breast calcifications that were extending along the medial breast, from the nipple to posterior breast. Pathology results showed invasive ductal carcinoma and ductal carcinoma in situ. -Breast MRI on December 27, 2024: Delineation of the biopsy proven malignancy of the left breast. Additional bilateral findings as follows: --Right breast: 0.8 x 0.5 cm enhancing mass in the retroareolar medial upper breast at 5-6 cm from the nipple ([id number]: 69/126). --Right breast: 0.9 x 0.5 cm enhancing mass in the retroareolar medial lower breast at 5 cm from the nipple ([id number]:75/126). --Right breast: 0.4 x 0.4 cm enhancing mass in the retroareolar upper inner quadrant at 1.7 cm from the nipple, immediately anterior to the known cyst located at 12 o'clock position at 2 cm from the nipple. --Left breast: 0.6 x 0.5 cm enhancing mass ([id number]:46/126) in the upper central slightly outer breast at 5 cm from the nipple. --Left axilla: Prominent lymph nodes. MR findings and plan for next step were discussed between Dr. Valverde and I, following interpretation of yesterday's MR study. COMPARISON: Diagnostic mammogram/ultrasound workup on December 07, 2024. Ultrasound-guided needle core biopsy on December 21, 2024. Stereotactic needle core biopsy on December 21, 2024. Breast MRI of December 27, 2024. 1) LIMITED ULTRASOUND OF THE RIGHT BREAST: FINDINGS: Limited ultrasound of the right breast was performed prior to the scheduled procedure. The survey demonstrates the following: - Solid mass at 3:00 (lower) 5 cm from the nipple, measuring 1.2 x 0.6 x 0.4 cm. This correlates with the MR finding described measuring 0.9 x 0.5 cm. - Solid mass at 3:00 (upper) 4 cm from the nipple, measuring 1.0 x 0.4 x 0.8 cm. This correlates with the MR finding described measuring 0.8 x 0.5 cm. - Survey was also performed in the immediate vicinity of the known cyst located at 12 o'clock position 2 cm from the nipple. No suspicious lesions identified. However, there was a prominent vessel running immediately anterior to the cyst that could potentially correlate with the MR finding described as measuring 0.4 x 0.4 cm. 2) LIMITED ULTRASOUND OF THE LEFT BREAST: FINDINGS: Limited ultrasound of the left breast was performed at prior to the scheduled procedure. The survey demonstrates the following: -Targeted ultrasound of the left axillary region shows a few prominent axillary lymph nodes measuring up to 0.3 cm in cortical thickness. No single lymph node with particularly suspicious features that was different from the others could be identified. -No definite MR correlate for the 0.6 x 0.5 cm MR finding seen in the upper central slightly outer breast at 5 cm from the nipple. 3) Following limited ultrasound examinations, it was decided to proceed with an ultrasound-guided needle core biopsy of the 2 right breast solid masses identified at 3 o'clock position 4 cm from the nipple. Proper informed consent is obtained from the patient after discussion of the procedure, potential risks and complications, and alternatives. Patient was given an opportunity for questions. The patient appeared to understand. The patient consented to the procedure and signed the consent form. 3A) ULTRASOUND-GUIDED NEEDLE CORE BIOPSY OF THE RIGHT BREAST 3:00 LOWER AT 5 CM FROM THE NIPPLE. GUIDANCE: Ultrasound-guided; aseptic technique. LESION: Solid mass at 3:00 lower at 5 cm from the nipple. APPROACH: Medial. ANESTHESIA: 7 cc of lidocaine 1% buffered with Sodium Bicarbonate 8.4 % (9cc: 1cc). NEEDLE: 14-gauge Bard Marquee biopsy device with co-axial introducer. CORES: 3. CLIP: Ultraclip; shape: Heart. 3B) ULTRASOUND-GUIDED NEEDLE CORE BIOPSY OF THE RIGHT BREAST 3:00 UPPER AT 4 CM FROM THE NIPPLE. GUIDANCE: Ultrasound-guided; aseptic technique. LESION: Solid mass at 3:00 upper at 4 cm from the nipple. APPROACH: Medial. ANESTHESIA: 5 cc of lidocaine 1%. NEEDLE: 16-gauge Bard Marquee biopsy device with co-axial introducer. CORES: 3. CLIP: Ultraclip; shape: ribbon. 4) POST PROCEDURE UNILATERAL DIGITAL RIGHT MAMMOGRAM WITH TOMOSYNTHESIS: The post biopsy mammogram with tomosynthesis is performed in separate room using separate digital mammography equipment from the biopsy procedure. ML 90 degrees, MLO and CC views are obtained. The ribbon and heart shape clip markers are in satisfactory position. No gross hematoma. The patient tolerated the procedure well. No immediate complications. Home instructions reviewed with the patient. Final pathology results are pending. US/US Breast BI Limited Mamm Only IMPRESSION: 1. Status post ultrasound-guided core biopsy of the right breast solid mass at 3:00 lower at 5 cm from the nipple breast, correlating with the mammographic and MR findings. Heart shape clip. 2. Status post ultrasound-guided core biopsy of the right breast solid mass at 3:00 upper at 4 cm from the nipple breast, correlating with the mammographic and MR findings. Ribbon shape clip. 3. Pathology pending. An addendum report will be issued. 4. No suspicious sonographic correlate for the 0.4 x 0.4 cm right breast retroareolar MR finding adjacent to the cyst. However, prominent local vessel could represent a potential correlate. Further management will depend on the pathology results of the today's biopsied masses. 5. No definite sonographic correlate for the 0.6 x 0.5 cm MR finding in the upper breast slightly outer breast at 5 cm from the nipple. Further management will depend on the pathology results of the today's biopsied masses. 6. Prominent left axillary lymph nodes with borderline cortical thickening. No sample was thought to be needed at this point. ASSESSMENT: BI-RADS: Post Procedure Mammograms for Marker Placement FOLLOW-UP: Awaiting Pathology Results Electronically signed by: Dev Whipple MD 12/28/2024 04:48 PM EDT
--- NOTE | ~2024-12-28 | US_ITS ---
EXAMINATIONS/PROCEDURES: 1. LIMITED ULTRASOUND OF THE RIGHT BREAST 2. LIMITED ULTRASOUND OF THE LEFT BREAST 3. ULTRASOUND GUIDED CORE BIOPSY BREAST, RIGHT (2 SITES) 4. POST PROCEDURE DIGITAL MAMMOGRAM, RIGHT CLINICAL INFORMATION: -December 21, 2024: Ultrasound-guided needle core biopsy of left breast mass at 8 o'clock position at 4 cm from the nipple. Pathology results showed invasive ductal carcinoma and ductal carcinoma in situ. -December 21, 2024: Stereotactic needle core biopsy of left breast calcifications that were extending along the medial breast, from the nipple to posterior breast. Pathology results showed invasive ductal carcinoma and ductal carcinoma in situ. -Breast MRI on December 27, 2024: Delineation of the biopsy proven malignancy of the left breast. Additional bilateral findings as follows: --Right breast: 0.8 x 0.5 cm enhancing mass in the retroareolar medial upper breast at 5-6 cm from the nipple ([id number]: 69/126). --Right breast: 0.9 x 0.5 cm enhancing mass in the retroareolar medial lower breast at 5 cm from the nipple ([id number]:75/126). --Right breast: 0.4 x 0.4 cm enhancing mass in the retroareolar upper inner quadrant at 1.7 cm from the nipple, immediately anterior to the known cyst located at 12 o'clock position at 2 cm from the nipple. --Left breast: 0.6 x 0.5 cm enhancing mass ([id number]:46/126) in the upper central slightly outer breast at 5 cm from the nipple. --Left axilla: Prominent lymph nodes. MR findings and plan for next step were discussed between Dr. Valverde and I, following interpretation of yesterday's MR study. COMPARISON: Diagnostic mammogram/ultrasound workup on December 07, 2024. Ultrasound-guided needle core biopsy on December 21, 2024. Stereotactic needle core biopsy on December 21, 2024. Breast MRI of December 27, 2024. 1) LIMITED ULTRASOUND OF THE RIGHT BREAST: FINDINGS: Limited ultrasound of the right breast was performed prior to the scheduled procedure. The survey demonstrates the following: - Solid mass at 3:00 (lower) 5 cm from the nipple, measuring 1.2 x 0.6 x 0.4 cm. This correlates with the MR finding described measuring 0.9 x 0.5 cm. - Solid mass at 3:00 (upper) 4 cm from the nipple, measuring 1.0 x 0.4 x 0.8 cm. This correlates with the MR finding described measuring 0.8 x 0.5 cm. - Survey was also performed in the immediate vicinity of the known cyst located at 12 o'clock position 2 cm from the nipple. No suspicious lesions identified. However, there was a prominent vessel running immediately anterior to the cyst that could potentially correlate with the MR finding described as measuring 0.4 x 0.4 cm. 2) LIMITED ULTRASOUND OF THE LEFT BREAST: FINDINGS: Limited ultrasound of the left breast was performed at prior to the scheduled procedure. The survey demonstrates the following: -Targeted ultrasound of the left axillary region shows a few prominent axillary lymph nodes measuring up to 0.3 cm in cortical thickness. No single lymph node with particularly suspicious features that was different from the others could be identified. -No definite MR correlate for the 0.6 x 0.5 cm MR finding seen in the upper central slightly outer breast at 5 cm from the nipple. 3) Following limited ultrasound examinations, it was decided to proceed with an ultrasound-guided needle core biopsy of the 2 right breast solid masses identified at 3 o'clock position 4 cm from the nipple. Proper informed consent is obtained from the patient after discussion of the procedure, potential risks and complications, and alternatives. Patient was given an opportunity for questions. The patient appeared to understand. The patient consented to the procedure and signed the consent form. 3A) ULTRASOUND-GUIDED NEEDLE CORE BIOPSY OF THE RIGHT BREAST 3:00 LOWER AT 5 CM FROM THE NIPPLE. GUIDANCE: Ultrasound-guided; aseptic technique. LESION: Solid mass at 3:00 lower at 5 cm from the nipple. APPROACH: Medial. ANESTHESIA: 7 cc of lidocaine 1% buffered with Sodium Bicarbonate 8.4 % (9cc: 1cc). NEEDLE: 14-gauge Bard Marquee biopsy device with co-axial introducer. CORES: 3. CLIP: Ultraclip; shape: Heart. 3B) ULTRASOUND-GUIDED NEEDLE CORE BIOPSY OF THE RIGHT BREAST 3:00 UPPER AT 4 CM FROM THE NIPPLE. GUIDANCE: Ultrasound-guided; aseptic technique. LESION: Solid mass at 3:00 upper at 4 cm from the nipple. APPROACH: Medial. ANESTHESIA: 5 cc of lidocaine 1%. NEEDLE: 16-gauge Bard Marquee biopsy device with co-axial introducer. CORES: 3. CLIP: Ultraclip; shape: ribbon. 4) POST PROCEDURE UNILATERAL DIGITAL RIGHT MAMMOGRAM WITH TOMOSYNTHESIS: The post biopsy mammogram with tomosynthesis is performed in separate room using separate digital mammography equipment from the biopsy procedure. ML 90 degrees, MLO and CC views are obtained. The ribbon and heart shape clip markers are in satisfactory position. No gross hematoma. The patient tolerated the procedure well. No immediate complications. Home instructions reviewed with the patient. Final pathology results are pending. US/US breast ndl core bio ea add IMPRESSION: 1. Status post ultrasound-guided core biopsy of the right breast solid mass at 3:00 lower at 5 cm from the nipple breast, correlating with the mammographic and MR findings. Heart shape clip. 2. Status post ultrasound-guided core biopsy of the right breast solid mass at 3:00 upper at 4 cm from the nipple breast, correlating with the mammographic and MR findings. Ribbon shape clip. 3. Pathology pending. An addendum report will be issued. 4. No suspicious sonographic correlate for the 0.4 x 0.4 cm right breast retroareolar MR finding adjacent to the cyst. However, prominent local vessel could represent a potential correlate. Further management will depend on the pathology results of the today's biopsied masses. 5. No definite sonographic correlate for the 0.6 x 0.5 cm MR finding in the upper breast slightly outer breast at 5 cm from the nipple. Further management will depend on the pathology results of the today's biopsied masses. 6. Prominent left axillary lymph nodes with borderline cortical thickening. No sample was thought to be needed at this point. ASSESSMENT: BI-RADS: Post Procedure Mammograms for Marker Placement FOLLOW-UP: Awaiting Pathology Results Electronically signed by: Dev Whipple MD 12/28/2024 04:48 PM EDT
--- OUTSIDE RECORDS SUMMARY | 2024-12-28 08:15 | XMS_ITS | Encounter Summary ---
Author Organization [facility] Address [address] [facility] [address] [place] [address] Phone Care Team Providers Care Clam Picker Name Role Phone Pcp, Not Required Primary Care Provider Unavaila ble Encounter Details Date Type Department Care Team (Late st Contact Info) Description 11/21/2024 Ancillary Orders [facility] [place] Imaging, [address] [address] Patti Morales NP 31 [facility] [place] [address] [email or web address] Unspecified lump in left breast, subareolar [...] [facility] [address] [place] [address] Bertha Madison MD 15 [facility], 2nd [place] [address] 01/02/2025 10:40 AM EDT Procedure visit [facility] [address] [place] [address] [place] [address] Iris Sherman MD 22 [facility], [address] [place] [address] 02/06/2025 8:30 AM EST Office Visit [facility] [address] [address] Cassy Raya MD 221 [place] [address] [email or web address] Scheduled Orders Name Type Priority Associated Diagnoses Orde r Schedule US Breast (Left) Imaging Routine Unspecified lump in left breast, subareolar 1 Occurrences starting 11/21/2024 until 11/21/2026 documented as of this encounter Visit Diagnoses Diagnosis Unspecified lump in left breast, subareolar- Primary documented in this encounter Care Teams Clam Picker Relationship Specialty Start Date End Date Pcp, Not Required [address] [place] [address] PCP - General 04/28/18 documented as of this encounter Additional Source Comments The information contained in this document represents components of the legal health record. It is not the complete legal health record.[facility]
--- OUTSIDE RECORDS SUMMARY | 2024-12-28 08:15 | XMS_ITS | Clinical Summary ---
Author Organization [facility] Address [address] [place] [address] Phone Care Team Providers Care Cable Television Access Coordinator Name Role Phone Pcp, Not Required Primary [...] Department Care Team Description 12/15/2024 Transcribe Orders [facility], [facility]- [address] [address] Patti Morales NP Other abnormal and inconclusive findings on diagnostic imaging of breast (Primary Dx) 12/14/2024 Transcribe Orders Virtual Department [address] [place] [address] Patti Morales NP Other abnormal and inconclusive findings on diagnostic imaging of breast (Primary Dx) 12/12/2024 Ancillary Orders [facility],Outside Imaging [address] [place] [address] Natalee, MD Natalee 12/12/2024 Ancillary Orders [facility],Outside Imaging [address] [place] [address] Unknown, MD Natalee 12/07/2024 12:05 AM EDT - 12/07/2024 11:59 PM EDT Hospital Encounter [facility],Outside Imaging [address] [place] [address] Unknown, Unknown, MD Discharge Disposition: Home or Self Care 12/07/2024 - 12/07/2024 12:04 AM EDT Hospital Encounter [facility],Outside Imaging [address] [place] [address] Unknown, Unknown, MD Discharge Disposition: Home or Self Care 11/21/2024 Ancillary Orders [facility] [place], [place] [address] [place] [address] Patti Morales NP Unspecified lump in left breast, subareolar (Primary Dx) 11/21/2024 Ancillary Orders [facility] [place], [place] [address] [place] [address] Patti Morales NP Unspecified lump in left [...] 12:00 PM EDT Office Visit [facility] General Surgical Care [address] [place] [address] Bertha Madison MD 15 [facility], 2nd [place] [address] 01/02/2025 10:40 AM EDT Procedure visit [facility] [address] [place] [address] [place] [address] Iris Sherman MD 22 [facility], [address] [place] [address] 02/06/2025 8:30 AM EST Office Visit [facility] [address] [address] Cassy Raya MD 221 [facility] [place] [address] [email or web address] Health Maintenance Due Date Last Done [...] SEE NARRATIVE - 04/21/2023 2:49 PM EST [address] [address] Rose Grower: aMranda Alcaraz MD [employer] Cytology Report FINAL DIAGNOSIS A. PAP SMEAR [...] 59, 66, 68) Note: Testing performed by [employer] Onclarity HR-HPV analysis. Clinical correlation is advised. This HPV test was performed at [facility], [address] [place] [address]. This test has been FDA approved for SurePath cervical cytology specimens. The accuracy and precision of this test for all other specimen sources has been verified in the Cytopathology Laboratory of the [facility] and has not been cleared or approved by the U.S. Food and Drug Administration. Clinical correlation is advised. CLINICAL HISTORY Date of Last Menstrual Period: 04-14-2023 Other Clinical Conditions: Screening Pap SPECIMEN SOURCE A: PAP SMEAR (SUREPATH) CE Patient Name: ARPAN BELTRAN : 1985 (Age: 38) Sex: F Institution: [facility] Location: [facility] Date of Collection: 04/16/2023 Date of Reported: 04/21/2023 14:49 Results to: Leana Chandler MD us Leana Chandler MD CYTOLOGY ORDERABLES Final Res ult SEE NARRATIVE from Last 3 Months or Most Recently Relevant to Health Maintenance Insurance [facility] COMMUNITY CHOICE [facility] CHOICE [facility] COMM[facility] CHO[facility] COMMUNITY CHO[facility] [place] [address] [address] [place] [address] COMMUNITY CHOICE [facility] CHOICE [facility] COMMUNITY CHOICE Care Teams Cable Television Access Coordinator Relationship Specialty Start Date End Date Pcp, Not Required [address] [place] [id number] PCP - General 04/28/18 Additional Source Comments The information contained in this document represents components of the legal health record. It is not the complete legal health record.[facility]
--- OUTSIDE RECORDS SUMMARY | 2024-12-28 08:15 | XMS_ITS | Encounter Summary ---
Author Organization [facility] Address [address] [facility] [address] [place] [id number] Phone Care Team Providers Care Data Report Analyst Name Role Phone Pcp, Not Required Primary Care Provider Unavaila ble Encounter Details Date Type Department Care Team (Late st Contact Info) Description 11/21/2024 Ancillary Orders [facility] [facility] [address] [address] Patti Morales NP [address] [facility] [place] [address] [email or web address] Unspecified lump in left breast, subareolar (Primary [...] [facility] [address] [place] [address] Bertha Madison MD 15 [facility], 2nd [place] [address] 01/02/2025 10:40 AM EDT Procedure visit [facility] [address] [place] [address] [place] [address] Iris Sherman MD [address] [facility], [address] [place] [address] 02/06/2025 8:30 AM EST Office Visit [facility] [address] [address] Cassy Raya MD [address] [facility] [place] [address] [email or web address] Scheduled Orders Name Type Priority Associated Diagnoses Orde r Schedule Mammogram Diagnostic (Bilateral) Imaging Routine Unspecified lump in left breast, subareolar 1 Occurrences starting 11/21/2024 until 11/21/2026 documented as of this encounter Visit Diagnoses Diagnosis Unspecified lump in left breast, subareolar- Primary documented in this encounter Care Teams Data Report Analyst Relationship Specialty Start Date End Date Pcp, Not Required [address] [place] [address] PCP - General 04/28/18 documented as of this encounter Additional Source Comments The information contained in this document represents components of the legal health record. It is not the complete legal health record.[facility]
[2024-12-28] MEDS: Lidocaine HCl 1 % 20 ML VIAL SUBCUT (12:25)
== END 2024-12-28 08:05 | disposition home or self-care (01) ==
LOC: HO.MAMMO 08:04
PROVIDERS: PCP Nurse Practitioner Adult Health; Visit Provider Nurse Practitioner Adult Health
DX: N63.42 Unspecified lump in left breast, subareolar (principal); N63.10 Unspecified lump in the right breast, unspecified quadrant
CPT/HCPCS: 19083; 19084; 76642; 77061; 77065; 88305; J2003